=== PATIENT | female | born 1995 | race Caucasian/White ===

== ENCOUNTER 2020-05-31 11:17 | Emergency (ER) | payer MEDICAID ==
[~2020-05-31] VITALS: Ht 170.2 cm; Wt 97.5 kg
--- NOTE | 2020-05-31 11:17 | NUR ---
PATIENT AMBULATED WITH ASSISTANCE TO ER BED 6.
[2020-05-31 11:20] VITALS: BP 129/57
[2020-05-31] MEDS ORDERED: AMOXIL/CLAVULANATE 875/125 MG 1 TAB PO ONE (11:25)
[2020-05-31] MEDS ORDERED: HYDROcodone/APAP 5/325 MG 1 TAB TAB PO ONE (11:25)
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
[2020-05-31] MEDS ORDERED: LIDOCAINE MPF 1% 10 MG/ML VIAL INJ STA (11:37)
[2020-05-31] MEDS ORDERED: NACL 0.9% 1,000 ML IV ONE (11:50)
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
--- NOTE | 2020-05-31 12:37 | NUR ---
PT REQUESTING PAIN MEDICATION, DR. CALZADA MADE AWARE, WILL TREAT PAIN WHEN PT RETURNS FROM CT
--- NOTE | 2020-05-31 12:48 | NUR ---
PT RETURNED FROM CT SCAN
[2020-05-31 13:45] VITALS: BP 105/71
--- NOTE | 2020-05-31 13:45 | NUR ---
Patient discharged with v/s stable. Written and verbal after care instructions given and explained. Patient alert, oriented and verbalized understanding of instructions. Ambulatory with steady gait. All questions addressed prior to discharge. ID band removed. Patient advised to follow up with PMD. Rx of Augmentin, Ibuprofen, and [place] given. Patient educated on indication of medication including possible reaction and side effects. Opportunity to ask questions provided and answered.
[2020-05-31] MEDS ORDERED: LIDOCAINE MPF 1% 5 ML ONE (13:49)
--- NOTE | 2020-06-03 01:57 | NUR ---
late entry----- s/w primary Nurse, as follows: NS 0.9% End time : 1230
== END 2020-05-31 13:45 | disposition home or self-care (01) ==
LOC: MED 11:17
DX: S01.512A Laceration without foreign body of oral cavity, initial encounter (principal); S09.90XA Unspecified injury of head, initial encounter; V89.2XXA Person injured in unspecified motor-vehicle accident, traffic, initial encounter; Y93.89 Activity, other specified; Y92.89 Other specified places as the place of occurrence of the external cause; Y99.8 Other external cause status
CPT/HCPCS: 70486; 81025; 90471; 90715; 96360; 99283; J2001; J7030

== ENCOUNTER 2020-06-22 20:03 | Emergency (ER) | payer MEDICAID, OTHER ==
--- NOTE | 2020-06-22 20:30 | NUR ---
PATIENT CALLED TO BE TRIAGE NO RESPONSE
--- NOTE | 2020-06-22 20:33 | NUR ---
CALLED FOR THE SECOND TIME, NO RESPONSE
--- NOTE | 2020-06-22 20:36 | NUR ---
CALLED FOR THE THIRD TIME NO RESPONSE PATIENT LEFT WITHOUT BEING SEEN BY DR. MJEIA. NO FURTHER CARE PROVIDED FOR PATIENT.
== END 2020-06-22 20:30 | disposition left against medical advice (07) ==
LOC: MED 20:03
DX: Z53.21 Procedure and treatment not carried out due to patient leaving prior to being seen by health care provider (principal)

== ENCOUNTER 2021-08-14 10:28 | Emergency (ER) | payer MEDICAID ==
[~2021-08-14] VITALS: Ht 167.6 cm; Wt 94.3 kg
--- NOTE | 2021-08-14 11:04 | NUR ---
CALLED TO TRIAGE, NO ANSWER
--- NOTE | 2021-08-14 12:19 | NUR ---
CALLED NUMBER ON FILE, PATIENT STATES SHE LEFT TO GET SOMETHING TO DRINK BUT STILL WISHES TO BE SEEN AND IS RETURNING.
[2021-08-14 13:04] VITALS: BP 115/69
--- NOTE | 2021-08-14 14:46 | NUR ---
ATTEMPTED TO DISCHARGE PT AT THIS TIME. NOT FOUND IN LOBBY/OUTSIDE
--- NOTE | 2021-08-14 15:30 | NUR ---
PT CLEARED FOR D/C BY DR ROBLES, NO ANSWER IN LOBBY/OUTSIDE. PT LEFT WITHOUT D/C PAPERWORK.
== END 2021-08-14 15:30 | disposition home or self-care (01) ==
LOC: MED 10:28
DX: K43.9 Ventral hernia without obstruction or gangrene (principal)
CPT/HCPCS: 99283